=== PATIENT | female | born 1985 | race American Indian/Alaskan Native ===

== ENCOUNTER 2016-09-26 22:04 | Emergency (ER) | payer BC ==
[2016-09-26 22:16] VITALS: BP 114/77; PULSE 67; RESP 18; TEMP 97.7; O2SAT 99
--- NOTE | 2016-09-26 23:27 | ED PDOC ---
HPI: Headache Time Seen by Provider: 09/26/16 22:25 Chief Complaint (Nursing): Weakness/Neurological Deficit Chief Complaint (Provider): headache History Per: Patient History/Exam Limitations: no limitations Onset/Duration Of Symptoms: Days Current Symptoms Are (Timing): Still Present Additional Complaint(s): 31yo female presents to the ED with c/o headache x 6 months described as pressure-like and worse with loud noises. Patient states she sometimes feels numbness to side of head. Also complaining of right ear ache for past few days. Headache is non-thunderclap and not the worst of her life. No neck stiffness. Past Medical History Reviewed: Historical Data, Nursing Documentation, Vital Signs Vital Signs: Last Vital Signs Temp 97.7 F 09/26/16 22:12 Pulse 67 09/26/16 22:12 Resp 18 09/26/16 22:12 BP 114/77 09/26/16 22:12 Pulse Ox 99 09/26/16 22:12 - Medical History PMH: No Chronic Diseases - Surgical History Surgical History: No Surg Hx - Family History Family History: States: No Known Family Hx - Home Medications Home Medications: Ambulatory Orders Medication Instructions Recorded Aspirin/Acetaminophen/Caffeine 1 each PO Q8 #30 tablet 09/26/16 [Excedrin Migraine Caplet] Ciprofloxacin/Dexamethasone 7.5 ml OT TID #1 bottle 09/26/16 [Ciprodex 0.3%-0.1% 7.5 Ml] - Allergies Allergies/Adverse Reactions: Allergies Allergy/AdvReac Type Severity Reaction Status Date / Time Penicillins Allergy RASH Verified 09/26/16 22:12 Review of Systems ROS Statement: Except As Marked, All Systems Reviewed And Found Negative ENT: Positive for: Ear Pain (right sided ) Musculoskeletal: Positive for: Other (no neck stiffness ) Neurological: Positive for: Numbness, Headache, Other (no thunderclap, not worst of life ) Physical Exam - Reviewed Nursing Documentation Reviewed: Yes Vital Signs Reviewed: Yes - Physical Exam Appears: Positive for: Well, No Acute Distress Head Exam: Positive for: ATRAUMATIC, NORMAL INSPECTION, NORMOCEPHALIC Skin: Positive for: Normal Color, Warm, Dry Eye Exam: Positive for: Normal appearance, EOMI, PERRL ENT: Positive for: TM Is/Are (right TM: mild erythema, left TM: normal ). Negative for: Pharyngeal Erythema, Tonsillar Exudate, Tonsillar Swelling Neck: Positive for: Normal, Painless ROM, Supple Cardiovascular/Chest: Positive for: Regular Rate, Rhythm. Negative for: Murmur , Tachycardia Respiratory: Positive for: Normal Breath Sounds. Negative for: Wheezing, Respiratory Distress Gastrointestinal/Abdominal: Positive for: Normal Exam, Bowel Sounds, Soft. Negative for: Tenderness Back: Positive for: Normal Inspection. Negative for: L CVA Tenderness, R CVA Tenderness Extremity: Positive for: Normal ROM. 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 Negative for: Motor/Sensory Deficits, Aphasia, Facial Droop - ECG O2 Sat by Pulse Oximetry: 99 Pulse Ox Interpretation: Normal (RA) Medical Decision Making Medical Decision Makin: Impression: tension headache with mild otalgia Plan: Will refer to neurology and clinic. Patient stable for d/c. Scribe Attestation: Documented by Tasha Suresh acting as a scribe for Addy Orlando MD. Provider Scribe Attestation: All medical record entries made by the Scribe were at my direction and personally dictated by me. I have reviewed the chart and agree that the record accurately reflects my personal performance of the history, physical exam, medical decision making, and the department course for this patient. I have also personally directed, reviewed, and agree with the discharge instructions and disposition. Disposition - Clinical Impression Clinical Impression: Tension headache - Patient ED Disposition Is Patient to be Admitted: No - Disposition Referrals: [facility] [Outside] Girma Javier MD [Medical Doctor] - Disposition: Routine/Home Disposition Time: 23:05 Condition: STABLE Prescriptions: Ciprofloxacin/Dexamethasone [Ciprodex 0.3%-0.1% 7.5 Ml] 7.5 ml OT TID #1 bottle Aspirin/Acetaminophen/Caffeine [Excedrin Migraine Caplet] 1 each PO Q8 #30 tablet Instructions: Tension Headache (ED)
== END 2016-09-26 23:23 | disposition home or self-care (01) ==
LOC: H.ER 22:04
DX: G44.209 Tension-type headache, unspecified, not intractable (principal)